=== PATIENT | female | born 1960 | race Caucasian/White ===

== ENCOUNTER 2018-02-19 23:06 | Inpatient (IN) | payer MEDICARE, OTHER ==
[2018-02-20 00:22] LABS: ADD MAN DIFF? NO
[2018-02-20 00:25] LABS: BASO % 0 % (0-3); EOS # 0.1 x10^3/uL (0.0-0.7); EOS % 1 % (0-3); HEMATOCRIT 23.7 % (36.0-47.0); HEMOGLOBIN 8.1 g/dL (12.0-15.5); LYMPH # 0.6 x10^3/uL (1.0-4.8); LYMPH % 9 % (24-48); MEAN CORPUSCULAR HEMOGLOBIN 26 pg (25-35); MEAN CORPUSCULAR HGB CONC 34 g/dL (31-37); MEAN CORPUSCULAR VOLUME 75 fL (79-100); MONO # 0.3 x10^3/uL (0.0-1.1); MONO % 5 % (0-9); NEUT % 84 % (31-73); PLATELET COUNT 287 x10^3/uL (140-400); RED BLOOD COUNT 3.15 x10^6/uL (3.50-5.40); RED CELL DISTRIBUTION WIDTH 16.3 % (11.5-14.5); WHITE BLOOD COUNT 5.9 x10^3/uL (4.0-11.0)
[2018-02-20 00:26] LABS: BILIRUBIN,URINE SMALL (NEG); CLARITY,URINE CLEAR; COLOR,URINE AMBER; GLUCOSE,URINE NEGATIVE (NEG); NITRITE,URINE POSITIVE (NEG); PROTEIN,URINE 30 mg/dL (NEG-TRACE)
[2018-02-20 00:31] LABS: BACTERIA,URINE MANY /HPF (0-FEW); RBC,URINE RARE /HPF (0-2); SQUAMOUS EPITHELIAL CELL,UR MOD /LPF; WBC,URINE 20-40 /HPF (0-4)
[2018-02-20 00:34] LABS: INR 1.3 (0.8-1.1); PROTHROMBIN TIME PATIENT 15.3 SEC (11.7-14.0)
[2018-02-20 00:39] LABS: ALBUMIN 1.9 g/dL (3.4-5.0); ALBUMIN/GLOBULIN RATIO 0.4 (1.0-1.7); ALK PHOS 180 U/L (46-116); ALT (SGPT) 11 U/L (14-59); ANION GAP 13 (6-14); AST (SGOT) 20 U/L (15-37); BLOOD UREA NITROGEN 13 mg/dL (7-20); BUN/CREATININE RATIO 16 (6-20); CALCIUM 7.9 mg/dL (8.5-10.1); CARBON DIOXIDE 27 mmol/L (21-32); CHLORIDE 97 mmol/L (98-107); CREATININE 0.8 mg/dL (0.6-1.0); GFR 73.9; GLUCOSE 133 mg/dL (70-99); MAGNESIUM 1.6 mg/dL (1.8-2.4); SODIUM 137 mmol/L (136-145); TOTAL BILIRUBIN 0.6 mg/dL (0.2-1.0); TOTAL PROTEIN 6.3 g/dL (6.4-8.2)
[2018-02-20 00:41] LABS: LACTIC ACID 3.9 mmol/L (0.4-2.0)
[2018-02-20 00:43] LABS: POTASSIUM 1.8 mmol/L (3.5-5.1)
[2018-02-20 00:44] LABS: NT-PRO BNP 409 pg/mL (0-124)
[2018-02-20] MEDS: POTASSIUM CHLORIDE 20 MEQ TABLET.ER. PO ×2 (00:59→10:54)
[2018-02-20] MEDS: PIPERACILLIN/TAZOBACTAM 3.375 GM in IV NORMAL SALINE 50ML 50 ML IV ×3 (01:00→18:03)
[2018-02-20] MEDS: IV NORMAL SALINE 1000ML BAG 1,000 ML IV ×2 (01:15→11:30)
[2018-02-20] MEDS: POTASSIUM CL 40MEQ D5-0.45NACL 1,000 ML IV (01:19)
[2018-02-20] MEDS: fentaNYL PF VIAL 100 MCG/2 ML VIAL IV ×4 (01:45→14:45)
[2018-02-20] MEDS: POTASSIUM CL 40MEQ IN 0.9%NACL 1,000 ML IV (01:45)
[2018-02-20] MEDS: MAGNESIUM SULFATE 2GM 50 ML IV (01:46)
[2018-02-20] MEDS: POTASSIUM CHLORIDE 20 MEQ/15 ML ORAL LIQUID. PO ×2 (02:34→06:06)
[2018-02-20] MEDS: VANCOMYCIN 2 GM in IV 1/2 NORMAL SALINE 500 ML IV (03:33)
[2018-02-20] MEDS: VANCOMYCIN PER PHARMACY MC (04:23)
[2018-02-20 05:37] LABS: ANION GAP 12 (6-14); BLOOD UREA NITROGEN 12 mg/dL (7-20); CALCIUM 7.2 mg/dL (8.5-10.1); CARBON DIOXIDE 26 mmol/L (21-32); CHLORIDE 102 mmol/L (98-107); CREATININE 0.7 mg/dL (0.6-1.0); GFR 86.2; GLUCOSE 107 mg/dL (70-99); SODIUM 140 mmol/L (136-145)
[2018-02-20 05:39] LABS: POTASSIUM 2.7 mmol/L (3.5-5.1)
[2018-02-20 06:09] LABS: LACTIC ACID 2.3 mmol/L (0.4-2.0)
[2018-02-20] MEDS: LACTOBACILLUS RHAMNOSUS GG 1 CAPSULE. PO ×2 (10:54→21:31)
[2018-02-20] MEDS: POTASSIUM CHLORIDE 10MEQ 100 ML IV ×4 (10:55→16:43)
[2018-02-20] MEDS: ENOXAPARIN 40 MG/0.4 ML SYRINGE. SQ (12:54)
[2018-02-20] MEDS: IV RINGERS,LACTATED 1000ML 1,000 ML IV (14:24)
[2018-02-20] MEDS ORDERED: PROCHLORPERAZINE 10 MG/2 ML VIAL. IV (14:30)
[2018-02-20] MEDS ORDERED: MORPHINE SULFATE 2 MG/ML DISP.SYRIN. IV (14:30)
[2018-02-20] MEDS ORDERED: fentaNYL PF VIAL 100 MCG/2 ML VIAL IV ×2 (14:30)
[2018-02-20] MEDS ORDERED: LIDOCAINE 1% PF 2 ML VIAL. ID (14:30)
[2018-02-20] MEDS ORDERED: ONDANSETRON PF 4 MG/2 ML VIAL. IV (14:30)
[2018-02-20 14:51] LABS: POTASSIUM 3.4 mmol/L (3.5-5.1)
[2018-02-20] MEDS ORDERED: VANCOMYCIN 1.25 GM in IV 1/2 NORMAL SALINE 250 ML IV (15:00)
[2018-02-20] MEDS ORDERED: PROPOFOL 20 ML IV (15:49)
[2018-02-20] MEDS ORDERED: ONDANSETRON PF 4 MG/2 ML VIAL. (15:49)
[2018-02-20] MEDS ORDERED: SEVOFLURANE 61 TO 120 MINUTES. IH (15:49)
[2018-02-20] MEDS ORDERED: LIDOCAINE 2% PF Vial for OR 5 ML VIAL. (15:49)
[2018-02-20] MEDS ORDERED: fentaNYL PF VIAL 100 MCG/2 ML VIAL (15:49)
[2018-02-20] MEDS ORDERED: DEXAMETHASONE SOD PHOS 20 MG/5 ML VIAL. (15:49)
[2018-02-20] MEDS: VANCOMYCIN 1 GM in IV NORMAL SALINE 250ML 250 ML IV (15:52)
[2018-02-20 16:15] LABS: MRSA BY PCR Positive (Negative)
[2018-02-20] MEDS: oxyCODONE/APAP 5/325 1 TAB TABLET PO (21:31)
[2018-02-21] MEDS: PIPERACILLIN/TAZOBACTAM 3.375 GM in IV NORMAL SALINE 50ML 50 ML IV ×4 (00:40→17:30)
[2018-02-21] MEDS: IV NORMAL SALINE 1000ML BAG 1,000 ML IV ×2 (00:50→12:34)
[2018-02-21] MEDS: VANCOMYCIN 1 GM in IV NORMAL SALINE 250ML 250 ML IV (04:33)
[2018-02-21 07:37] LABS: ADD MAN DIFF? NO
[2018-02-21 07:41] LABS: BASO % 0 % (0-3); EOS # 0.1 x10^3/uL (0.0-0.7); EOS % 2 % (0-3); LYMPH # 0.6 x10^3/uL (1.0-4.8); LYMPH % 13 % (24-48); MEAN CORPUSCULAR HEMOGLOBIN 26 pg (25-35); MEAN CORPUSCULAR HGB CONC 34 g/dL (31-37); MEAN CORPUSCULAR VOLUME 76 fL (79-100); MONO # 0.3 x10^3/uL (0.0-1.1); MONO % 7 % (0-9); NEUT # 3.3 x10^3uL (1.8-7.7); NEUT % 78 % (31-73); PLATELET COUNT 216 x10^3/uL (140-400); RED BLOOD COUNT 2.47 x10^6/uL (3.50-5.40); RED CELL DISTRIBUTION WIDTH 16.1 % (11.5-14.5); WHITE BLOOD COUNT 4.3 x10^3/uL (4.0-11.0)
[2018-02-21 07:52] LABS: HEMOGLOBIN 6.4 g/dL (12.0-15.5)
[2018-02-21 07:53] LABS: HEMATOCRIT 18.8 % (36.0-47.0)
[2018-02-21 07:55] LABS: LACTIC ACID 2.5 mmol/L (0.4-2.0)
[2018-02-21 07:59] LABS: ANION GAP 6 (6-14); BLOOD UREA NITROGEN 10 mg/dL (7-20); CALCIUM 7.3 mg/dL (8.5-10.1); CARBON DIOXIDE 28 mmol/L (21-32); CHLORIDE 102 mmol/L (98-107); CREATININE 0.7 mg/dL (0.6-1.0); GFR 86.2; GLUCOSE 108 mg/dL (70-99); MAGNESIUM 1.7 mg/dL (1.8-2.4); POTASSIUM 3.2 mmol/L (3.5-5.1); SODIUM 136 mmol/L (136-145)
[2018-02-21 09:00] LABS: SEDIMENTATION RATE 91 (0-25)
[2018-02-21] MEDS: LACTOBACILLUS RHAMNOSUS GG 1 CAPSULE. PO ×2 (09:36→22:40)
[2018-02-21] MEDS: IBUPROFEN 800 MG TABLET. PO ×2 (09:37→22:40)
[2018-02-21] MEDS: POTASSIUM CHLORIDE 20 MEQ TABLET.ER. PO ×2 (09:37→12:30)
[2018-02-21] MEDS: ENOXAPARIN 40 MG/0.4 ML SYRINGE. SQ (12:31)
[2018-02-21] MEDS: oxyCODONE/APAP 5/325 1 TAB TABLET PO (14:14)
[2018-02-21 15:04] LABS: VANC TR 10.5 mcg/mL (10.0-20.0)
[2018-02-21] MEDS: VANCOMYCIN PER PHARMACY MC (15:28)
[2018-02-21 16:07] LABS: IMMEDIATE SPIN CROSSMATCH 1 3
[2018-02-21] MEDS: VANCOMYCIN 1.25 GM in IV 1/2 NORMAL SALINE 250 ML IV (18:49)
[2018-02-22] MEDS: oxyCODONE/APAP 5/325 1 TAB TABLET PO ×3 (00:11→16:24)
[2018-02-22] MEDS: PIPERACILLIN/TAZOBACTAM 3.375 GM in IV NORMAL SALINE 50ML 50 ML IV ×4 (00:14→18:49)
[2018-02-22] MEDS: VANCOMYCIN 1.25 GM in IV 1/2 NORMAL SALINE 250 ML IV ×2 (04:40→16:24)
[2018-02-22] MEDS: IV NORMAL SALINE 1000ML BAG 1,000 ML IV (06:32)
[2018-02-22 07:30] LABS: ADD MAN DIFF? NO
[2018-02-22 07:40] LABS: BASO % 0 % (0-3); EOS # 0.1 x10^3/uL (0.0-0.7); EOS % 2 % (0-3); HEMATOCRIT 25.4 % (36.0-47.0); HEMOGLOBIN 8.6 g/dL (12.0-15.5); LYMPH # 0.7 x10^3/uL (1.0-4.8); LYMPH % 12 % (24-48); MEAN CORPUSCULAR HEMOGLOBIN 27 pg (25-35); MEAN CORPUSCULAR HGB CONC 34 g/dL (31-37); MEAN CORPUSCULAR VOLUME 80 fL (79-100); MONO # 0.4 x10^3/uL (0.0-1.1); MONO % 7 % (0-9); NEUT # 4.6 x10^3uL (1.8-7.7); NEUT % 78 % (31-73); PLATELET COUNT 206 x10^3/uL (140-400); RED BLOOD COUNT 3.17 x10^6/uL (3.50-5.40); RED CELL DISTRIBUTION WIDTH 17.9 % (11.5-14.5); RETIC COUNT 0.7 % (0.5-2.5); WHITE BLOOD COUNT 5.8 x10^3/uL (4.0-11.0)
[2018-02-22 09:18] LABS: % SAT IRON 11 % (15-34); IRON,SERUM 11 ug/dL (50-170)
[2018-02-22 09:30] LABS: ANION GAP 8 (6-14); BLOOD UREA NITROGEN 8 mg/dL (7-20); CALCIUM 7.3 mg/dL (8.5-10.1); CARBON DIOXIDE 26 mmol/L (21-32); CHLORIDE 105 mmol/L (98-107); CREATININE 0.5 mg/dL (0.6-1.0); FERRITIN 507 ng/mL (8-252); GFR 127.2; GLUCOSE 81 mg/dL (70-99); POTASSIUM 3.2 mmol/L (3.5-5.1); SODIUM 139 mmol/L (136-145)
[2018-02-22] MEDS: POTASSIUM CHLORIDE 20 MEQ TABLET.ER. PO (09:53)
[2018-02-22] MEDS: LACTOBACILLUS RHAMNOSUS GG 1 CAPSULE. PO ×2 (09:53→18:51)
[2018-02-22] MEDS: ENOXAPARIN 40 MG/0.4 ML SYRINGE. SQ (11:53)
[2018-02-22 12:53] LABS: VITAMIN-B12 778 pg/mL (247-911)
[2018-02-22 12:53] LABS: FOLATE 5.95 ng/ml (3.2-20.0)
[2018-02-22] MEDS: IBUPROFEN 800 MG TABLET. PO (13:02)
[2018-02-22] MEDS: VANCOMYCIN PER PHARMACY MC (13:29)
[2018-02-23] MEDS: VANCOMYCIN 1.25 GM in IV 1/2 NORMAL SALINE 250 ML IV ×2 (04:00→16:00)
[2018-02-23] MEDS: IBUPROFEN 800 MG TABLET. PO ×2 (05:22→12:53)
[2018-02-23] MEDS: PIPERACILLIN/TAZOBACTAM 3.375 GM in IV NORMAL SALINE 50ML 50 ML IV ×3 (05:22→12:51)
[2018-02-23 07:30] LABS: ADD MAN DIFF? NO
[2018-02-23 07:36] LABS: BASO % 0 % (0-3); EOS # 0.1 x10^3/uL (0.0-0.7); EOS % 1 % (0-3); HEMATOCRIT 26.3 % (36.0-47.0); LYMPH # 0.7 x10^3/uL (1.0-4.8); LYMPH % 9 % (24-48); MEAN CORPUSCULAR HEMOGLOBIN 27 pg (25-35); MEAN CORPUSCULAR HGB CONC 34 g/dL (31-37); MEAN CORPUSCULAR VOLUME 79 fL (79-100); MONO # 0.5 x10^3/uL (0.0-1.1); MONO % 7 % (0-9); NEUT # 6.4 x10^3uL (1.8-7.7); NEUT % 83 % (31-73); PLATELET COUNT 263 x10^3/uL (140-400); RED BLOOD COUNT 3.31 x10^6/uL (3.50-5.40); WHITE BLOOD COUNT 7.8 x10^3/uL (4.0-11.0)
[2018-02-23 08:20] LABS: ANION GAP 7 (6-14); BLOOD UREA NITROGEN 8 mg/dL (7-20); CALCIUM 7.2 mg/dL (8.5-10.1); CARBON DIOXIDE 27 mmol/L (21-32); CHLORIDE 102 mmol/L (98-107); CREATININE 0.5 mg/dL (0.6-1.0); GFR 127.2; GLUCOSE 87 mg/dL (70-99); SODIUM 136 mmol/L (136-145)
[2018-02-23 08:26] LABS: POTASSIUM 2.8 mmol/L (3.5-5.1)
[2018-02-23 08:36] LABS: THYROID STIM HORMONE (TSH) 0.306 uIU/mL (0.358-3.74)
[2018-02-23] MEDS: POTASSIUM CHLORIDE 20 MEQ TABLET.ER. PO ×3 (09:17→12:51)
[2018-02-23] MEDS: LACTOBACILLUS RHAMNOSUS GG 1 CAPSULE. PO ×2 (09:17→21:04)
[2018-02-23] MEDS: oxyCODONE/APAP 5/325 1 TAB TABLET PO ×3 (09:19→21:05)
[2018-02-23] MEDS: FERROUS SULFATE 325 MG TABLET. PO (09:21)
[2018-02-23] MEDS: ENOXAPARIN 40 MG/0.4 ML SYRINGE. SQ (12:50)
[2018-02-23] MEDS: VANCOMYCIN PER PHARMACY MC (15:00)
[2018-02-23] MEDS: POTASSIUM CHLORIDE 10 MEQ TABLET.ER. PO (16:45)
[2018-02-23] MEDS: MEROPENEM 500 MG in IV NORMAL SALINE 50ML 50 ML IV (17:50)
[2018-02-23] MEDS: DARBEPOETIN ALFA 100 MCG/0.5 ML DISP.SYRIN. SQ (21:05)
[2018-02-24] MEDS: MEROPENEM 500 MG in IV NORMAL SALINE 50ML 50 ML IV ×5 (00:05→22:55)
[2018-02-24] MEDS: oxyCODONE/APAP 5/325 1 TAB TABLET PO ×3 (02:31→20:39)
[2018-02-24] MEDS: IBUPROFEN 800 MG TABLET. PO ×3 (05:48→18:22)
[2018-02-24] MEDS ORDERED: POTASSIUM CHLORIDE 20 MEQ TABLET.ER. PO ×2 (08:00→10:00)
[2018-02-24 08:07] LABS: ADD MAN DIFF? NO
[2018-02-24 08:26] LABS: ANION GAP 9 (6-14); BLOOD UREA NITROGEN 9 mg/dL (7-20); CALCIUM 7.6 mg/dL (8.5-10.1); CARBON DIOXIDE 28 mmol/L (21-32); CHLORIDE 102 mmol/L (98-107); CREATININE 0.5 mg/dL (0.6-1.0); GFR 127.2; GLUCOSE 80 mg/dL (70-99); POTASSIUM 3.3 mmol/L (3.5-5.1); SODIUM 139 mmol/L (136-145)
[2018-02-24 08:34] LABS: BASO % 0 % (0-3); EOS # 0.2 x10^3/uL (0.0-0.7); EOS % 4 % (0-3); HEMATOCRIT 27.3 % (36.0-47.0); HEMOGLOBIN 9.2 g/dL (12.0-15.5); LYMPH # 0.7 x10^3/uL (1.0-4.8); LYMPH % 13 % (24-48); MEAN CORPUSCULAR HEMOGLOBIN 27 pg (25-35); MEAN CORPUSCULAR HGB CONC 34 g/dL (31-37); MEAN CORPUSCULAR VOLUME 81 fL (79-100); MONO # 0.3 x10^3/uL (0.0-1.1); MONO % 5 % (0-9); NEUT # 4.6 x10^3uL (1.8-7.7); NEUT % 79 % (31-73); PLATELET COUNT 284 x10^3/uL (140-400); RED BLOOD COUNT 3.39 x10^6/uL (3.50-5.40); RED CELL DISTRIBUTION WIDTH 18.1 % (11.5-14.5); WHITE BLOOD COUNT 5.8 x10^3/uL (4.0-11.0)
[2018-02-24] MEDS: FERROUS SULFATE 325 MG TABLET. PO (09:52)
[2018-02-24] MEDS: POTASSIUM CHLORIDE 20 MEQ TABLET.ER. PO ×2 (09:53→10:50)
[2018-02-24] MEDS: LACTOBACILLUS RHAMNOSUS GG 1 CAPSULE. PO ×2 (09:53→20:39)
[2018-02-24] MEDS: ENOXAPARIN 40 MG/0.4 ML SYRINGE. SQ (10:47)
[2018-02-24 11:02] LABS: POC GLUCOSE 95 mg/dL (70-99)
[2018-02-25] MEDS: oxyCODONE/APAP 5/325 1 TAB TABLET PO ×2 (00:59→08:28)
[2018-02-25 05:34] LABS: ANION GAP 6 (6-14); BLOOD UREA NITROGEN 11 mg/dL (7-20); CALCIUM 7.4 mg/dL (8.5-10.1); CARBON DIOXIDE 30 mmol/L (21-32); CHLORIDE 103 mmol/L (98-107); CREATININE 0.6 mg/dL (0.6-1.0); GLUCOSE 87 mg/dL (70-99); POTASSIUM 3.7 mmol/L (3.5-5.1); SODIUM 139 mmol/L (136-145)
[2018-02-25] MEDS: MEROPENEM 500 MG in IV NORMAL SALINE 50ML 50 ML IV ×3 (05:56→18:20)
[2018-02-25] MEDS: FERROUS SULFATE 325 MG TABLET. PO (08:00)
[2018-02-25] MEDS: POTASSIUM CHLORIDE 20 MEQ TABLET.ER. PO (08:29)
[2018-02-25] MEDS: LACTOBACILLUS RHAMNOSUS GG 1 CAPSULE. PO ×2 (08:29→20:54)
[2018-02-25] MEDS: ENOXAPARIN 40 MG/0.4 ML SYRINGE. SQ (10:48)
[2018-02-25] MEDS: MORPHINE ER 15 MG TABLET.ER PO ×2 (10:48→20:54)
[2018-02-25] MEDS: IBUPROFEN 800 MG TABLET. PO ×3 (10:49→20:54)
[2018-02-25] MEDS: DICLOFENAC SODIUM 1% TOPICAL GEL 100GM TUBE. TP ×2 (12:08→18:22)
[2018-02-25] MEDS ORDERED: LIDOCAINE WITH 8.4% SOD BICARB 3 ML DISP.SYRIN. ×2 (12:51→13:23)
[2018-02-25] MEDS: LIDOCAINE WITH 8.4% SOD BICARB 3 ML DISP.SYRIN. INJ (13:15)
[2018-02-26] MEDS: MEROPENEM 500 MG in IV NORMAL SALINE 50ML 50 ML IV ×3 (00:06→11:44)
[2018-02-26 07:36] LABS: ERYTHROPOIETIN LVL 54.5 mIU/mL (2.6-18.5)
[2018-02-26] MEDS: POTASSIUM CHLORIDE 20 MEQ TABLET.ER. PO (08:01)
[2018-02-26] MEDS: FERROUS SULFATE 325 MG TABLET. PO (08:01)
[2018-02-26] MEDS: IBUPROFEN 800 MG TABLET. PO ×2 (08:02→13:46)
[2018-02-26] MEDS: MORPHINE ER 15 MG TABLET.ER PO (08:02)
[2018-02-26] MEDS: LACTOBACILLUS RHAMNOSUS GG 1 CAPSULE. PO (08:02)
[2018-02-26] MEDS: DICLOFENAC SODIUM 1% TOPICAL GEL 100GM TUBE. TP (09:23)
[2018-02-26] MEDS: ENOXAPARIN 40 MG/0.4 ML SYRINGE. SQ (11:43)
[2018-03-05] MEDS ORDERED: EPOETIN ALFA 10,000 UNIT/ML VIAL. SQ (09:00)
== END 2018-02-26 16:40 | DRG 853 ==
LOC: 1 WEST ICU 02-20 01:29 → ER 23:06 → 4 NORTH 02-20 19:49
PROC: 0Y6R0Z0 Detachment at Right 2nd Toe, Complete, Open Approach (ICD-10-PCS; principal; 2018-02-20 15:33)
PROC: 0SBM0ZZ Excision of Right Metatarsal-Phalangeal Joint, Open Approach (ICD-10-PCS; 2018-02-20 15:33)
PROC: 02HV33Z Insertion of Infusion Device into Superior Vena Cava, Percutaneous Approach (ICD-10-PCS; 2018-02-20 15:33)
PROC: B5181ZA Fluoroscopy of Superior Vena Cava using Low Osmolar Contrast, Guidance (ICD-10-PCS; 2018-02-20 15:33)
PROC: B548ZZA Ultrasonography of Superior Vena Cava, Guidance (ICD-10-PCS; 2018-02-20 15:33)
PROC: 30233N1 Transfusion of Nonautologous Red Blood Cells into Peripheral Vein, Percutaneous Approach (ICD-10-PCS; 2018-02-20 15:33)
DX: A41.50 Gram-negative sepsis, unspecified (principal); E43 Unspecified severe protein-calorie malnutrition; L02.611 Cutaneous abscess of right foot; M86.171 Other acute osteomyelitis, right ankle and foot; N39.0 Urinary tract infection, site not specified; E87.6 Hypokalemia; F17.210 Nicotine dependence, cigarettes, uncomplicated; M06.9 Rheumatoid arthritis, unspecified; B96.20 Unspecified Escherichia coli [E. coli] as the cause of diseases classified elsewhere; D63.8 Anemia in other chronic diseases classified elsewhere; D50.9 Iron deficiency anemia, unspecified; G62.9 Polyneuropathy, unspecified; M24.561 Contracture, right knee; M24.562 Contracture, left knee; Z68.22 Body mass index [BMI] 22.0-22.9, adult; Z90.710 Acquired absence of both cervix and uterus; Z91.19 Patient's noncompliance with other medical treatment and regimen; Z89.422 Acquired absence of other left toe(s); Z83.3 Family history of diabetes mellitus; Z86.14 Personal history of Methicillin resistant Staphylococcus aureus infection
CPT/HCPCS: 36415; 36569; 71045; 73030; 73562; 73630; 76937; 77001; 80048; 80053; 80202; 81001; 82607; 82668; 82728; 82746; 82962; 83540; 83550; 83605; 83735; 83880; 84132; 84443; 85025; 85045; 85610; 85651; 86850; 86900; 86901; 86920; 87040; 87071; 87075; 87086; 87186; 87205; 87641; 88305; 88311; 93005; 96365; 96366; 96368; 96375; 97163-GP; 97166-GO; 97530-GP; 97535-GO; 99291; A7015; C1751; C1892; J0881; J1100; J1650; J2001; J2185; J2405; J2543; J2704; J3010; J3370; J3475; J3480; J7030; J7042; J7050; J7120; P9016